=== PATIENT | male | born 1935 | race Caucasian/White ===

== ENCOUNTER → 2019-10-23 | Outpatient (CLI) | payer OTHER | LOC: SJCVCIMAG 09:36 | PROVIDERS: ATTEND Internal Medicine Cardiovascular Disease | DX: I45.10 Unspecified right bundle-branch block (principal); I10 Essential (primary) hypertension; E78.5 Hyperlipidemia, unspecified; I65.29 Occlusion and stenosis of unspecified carotid artery ==

== ENCOUNTER → 2020-08-20 | Outpatient (CLI) | payer OTHER | LOC: SJCVCIMAG 10:56 → SJCVC 10:56 | PROVIDERS: ATTEND Internal Medicine Cardiovascular Disease | DX: I65.23 Occlusion and stenosis of bilateral carotid arteries (principal); I70.208 Unspecified atherosclerosis of native arteries of extremities, other extremity; R94.31 Abnormal electrocardiogram [ECG] [EKG]; E78.00 Pure hypercholesterolemia, unspecified; I77.1 Stricture of artery; I10 Essential (primary) hypertension; Z98.890 Other specified postprocedural states; Z79.82 Long term (current) use of aspirin; Z79.899 Other long term (current) drug therapy; Z87.891 Personal history of nicotine dependence ==